=== PATIENT | male | born 1980 ===

== ENCOUNTER 2018-04-19 05:40 | Observation (INO) | payer OTHER ==
[2018-04-19] VITALS (17 sets, daily range): BP systolic 108–134; BP diastolic 55–83
[~2018-04-19] VITALS: Ht 170.2 cm; Wt 81.6 kg
[~2018-04-19 05:40] MED LIST: NKM
[2018-04-19] MEDS ORDERED: D5 1/2NS 1000ml IV ONE (05:41)
[2018-04-19] MEDS ORDERED: LR 1000ml 1,000 ML IVLG SCH (06:10)
--- NOTE | 2018-04-19 06:14 | Anethesia Preoperative Eval ---
Anesthesia Pre-op PMH/ROS General Date of Evaluation: Apr 19, 2018 Time of Evaluation: 07:28 Anesthesiologist: Angy ASA Score: ASA 2 Mallampati Score Class I : Soft palate, uvula, fauces, pillars visible Class II: Soft palate, uvula, fauces visible Class III: Soft palate, base of uvula visible Class IV: Only hard plate visible Mallampati Classification: Class II Surgeon: Mallory Diagnosis: Neck Pain Surgical Procedure: ACDF C3-4 Anesthesia History: none Family History: no anesthesia problems Allergies: Coded Allergies: No Known Allergies (Unverified , 04/18/18) Medications: see eMAR Patient NPO?: Yes Past Medical History Gastrointestinal/Genitourinary: Reports: GERD Other: obesity - BMI 30 Anesthesia Pre-op Phys. Exam Physician Exam Last Vital Signs Date Time Temp Pulse Resp B/P (MAP) Pulse Ox O2 Delivery O2 Flow Rate FiO2 04/19/18 06:12 97.3 72 20 109/72 (84) 100 04/19/18 06:07 Room Air Constitutional: NAD Neurologic: CN 2-12 intact Cardiovascular: RRR Respiratory: CTA Gastrointestinal: S/NT/ND Airway Exam Mallampati Score: Class II MO: limited ROM: limited Teeth: intact Anesthesia Pre-op A/P Risk Assessment & Plan Assessment: ASA 2 Plan: GA Status Change Before Surgery: No Pre-Antibiotics Dru Grams Ancef IV Given Within 1 Hr of Incision: Yes Time Given: 07:41 Berry Travis MD Apr 19, 2018 06:14
[2018-04-19] MEDS ORDERED: DiphenhydrAMINE 50mg/ml Inj IVP PRN (06:15)
[2018-04-19] MEDS ORDERED: Atropine Sulfate 0.4mg/ml inj IVP PRN (06:15)
[2018-04-19] MEDS ORDERED: LORazepam Inj 2mg/ml 1ml IV PRN (06:15)
[2018-04-19] MEDS ORDERED: fentaNYL 100 mcg/2 mL IV PRN (06:15)
[2018-04-19] MEDS ORDERED: oxyCODONE HCL/Acetaminophen 5/325mg ORAL PRN (06:15)
[2018-04-19] MEDS ORDERED: Metoclopramide 10mg/2ml Inj IVP PRN (06:15)
[2018-04-19] MEDS ORDERED: Midazolam 2mg/2ml Inj IVP PRN (06:15)
[2018-04-19] MEDS ORDERED: Norco 5mg/325mg tab ORAL PRN ×2 (06:15→10:30)
[2018-04-19] MEDS ORDERED: Ketorolac 30mg Inj IV PRN ×2 (06:15)
[2018-04-19] MEDS ORDERED: HYDROcodone/Acetamin 7.5/325 tab ORAL PRN ×3 (06:15→10:30)
[2018-04-19] MEDS ORDERED: Meperidine 50mg/ml Inj(FOR RIGORS ONLY) IVP PRN (06:15)
[2018-04-19] MEDS ORDERED: Zemuron 50mg/5ml Inj IV ONE (06:18)
[2018-04-19] MEDS ORDERED: Acetaminophen (Non formulary) 100 ML IV ONE (06:30)
[2018-04-19] MEDS ORDERED: Sodium Chloride 10ml vial INJ ONE (06:55)
[2018-04-19] MEDS ORDERED: Lidocaine 1% MPF 10mg/ml 5ml ONE (06:55)
[2018-04-19] MEDS ORDERED: Dexamethasone 4mg/ml vial ONE (06:55)
[2018-04-19] MEDS ORDERED: Vancomycin 1gm inj IVPB ONE (06:58)
[2018-04-19] MEDS ORDERED: Bupivacaine w/Epi 0.5% 30ml Vial INJ ONE (06:59)
[2018-04-19] MEDS ORDERED: Thrombin 5000 units TOPIC ONE ×2 (06:59→07:00)
[2018-04-19] MEDS ORDERED: Bacitracin 50000 Units Vial ONE (06:59)
[2018-04-19] MEDS ORDERED: Gelfoam Size TOPIC ONE (06:59)
[2018-04-19] MEDS ORDERED: ceFAZolin sod 2 GM in D5W 110 ML IVPB ONE (07:00)
[2018-04-19] MEDS ORDERED: Lidocaine 1% Plain 30 ml INJ ONE ×2 (07:01→09:15)
[2018-04-19] MEDS ORDERED: fentaNYL 100 mcg/2 mL IV ONE ×3 (07:09→10:11)
--- NOTE | 2018-04-19 07:27 | Pre-Procedure Note/Attestation ---
Pre-Procedure Note/Attestation Complete Prior to Procedure Procedure Narrative: acdf C3-4 with right iliac crest bone marrow aspiration Attestation I attest that I discussed the nature of the procedure; its benefits; risks and complications; and alternatives (and the risks and benefits of such alternatives ), prior to the procedure, with the patient (or the patient's legal entry level marketing representative). I attest that, if there was a reasonable possibility of needing a blood transfusion, the patient (or the patient's legal entry level marketing representative) was given the [facility] standardized written summary, pursuant to the Sam Juntura Blood Safety Act ([place] Health and Safety Code # 1645, as amended). I attest that I re-evaluated the patient just prior to the surgery and that there has been no change in the patient's H&P, except as documented below: Gennaro Tejada MD Apr 19, 2018 07:27
[2018-04-19] MEDS ORDERED: Heparin 1000 units/ml 1ml Vial ONE (07:28)
[2018-04-19] MEDS ORDERED: HYDROmorphone 1mg/ml Carpuject SUBQ PRN (10:30)
[2018-04-19] MEDS ORDERED: Naloxone 0.4mg/ml Inj IVP PRN (10:30)
--- NOTE | 2018-04-19 10:30 | Brief Operative Note ---
Immediate Post Operative Note Operative Note Pre-op Diagnosis: cervical myeloradiculopathy Procedure: acdf c3-4 and BMAC Post-op Diagnosis: mali Post-op Diagnosis: same as pre-op Findings: consistent w/pre-op dx studies Surgeon: David Milk Drier: Demian Anesthesiologist: Grazyna Anesthesia: general Specimen: yes Complications: none Condition: stable Fluids: 900cc Estimated Blood Loss: minimal - 15cc Drains: none Implant(s) used?: Yes Gennaro Tejada MD Apr 19, 2018 10:30
--- NOTE | 2018-04-19 10:39 | Immediate Post-Op Evaluation ---
Immediate Post-Op Evalulation Immediate Post-Op Evalulation Procedure: ACDF C3-4 Date of Evaluation: Apr 19, 2018 Time of Evaluation: 10:47 IV Fluids: 900 LR Blood Products: 0 Estimated Blood Loss: 15 Urinary Output: 0 Blood Pressure Systolic: 126 Blood Pressure Diastolic: 76 Pulse Rate: 68 Respiratory Rate: 16 O2 Sat by Pulse Oximetry: 100 Temperature (Fahrenheit): 97.3 Pain Score (1-10): 2 Nausea: No Vomiting: No Complications 0 Patient Status: awake, reacts, patent, none Hydration Status: adequate Dru Grams Ancef IV Given Within 1 Hr of Incision: Yes Time Given: 07:41 Berry Travis MD Apr 19, 2018 10:39
[2018-04-19] MEDS: Hydromorphone 0.5mg/0.5ml inj IVP PRN ×2 (11:05→11:25)
--- NOTE | 2018-04-19 12:30 | Diagnostic Imaging Report ---
Indication: Neck Pain Findings: 3 fluoroscopic views of the cervical spine were obtained. Localization images followed by anterior cervical fusion at C3-C4 noted with anterior compression plate and the prosthetic disc. IMPRESSION: Intraoperative imaging
[2018-04-19] MEDS: D5 1/2NS 1,000 ML IV SCH ×2 (14:22→21:01)
[2018-04-19] MEDS: ceFAZolin 1gm/50ml Premix 50 ML IV SCH ×2 (16:12→22:58)
[2018-04-19] MEDS: Docusate 100mg cap ORAL SCH (17:39)
--- NOTE | 2018-04-19 19:21 | Cardiology Progress Note ---
Assessment/Plan Assessment/Plan [id number] early ambulation avoidance of tobacco pain management Chloraseptic spray prn home in am if ok Objective Last 24 Hour Vital Signs Date Time Temp Pulse Resp B/P (MAP) Pulse Ox O2 Delivery O2 Flow Rate FiO2 04/19/18 16:00 97.3 64 16 130/75 (93) 99 04/19/18 13:45 97.6 65 20 121/66 (84) 99 04/19/18 13:15 97.6 60 20 124/69 (87) 98 04/19/18 12:45 97.4 73 22 123/73 (90) 99 04/19/18 12:09 97.0 62 22 124/75 100 Nasal Cannula 3 04/19/18 11:53 58 17 108/55 100 Nasal Cannula 3 04/19/18 11:48 97.9 04/19/18 11:45 63 17 124/74 100 Nasal Cannula 3 04/19/18 11:35 60 15 127/72 100 Nasal Cannula 3 04/19/18 11:25 62 13 131/75 100 Nasal Cannula 3 04/19/18 11:20 61 15 131/70 99 Nasal Cannula 3 04/19/18 11:05 68 23 134/83 99 Nasal Cannula 3 04/19/18 10:55 64 23 132/81 100 Nasal Cannula 3 04/19/18 10:45 71 15 134/82 100 Simple Mask 6 04/19/18 10:40 73 16 131/83 100 Simple Mask 6 04/19/18 10:39 68 16 100 04/19/18 10:36 97.3 68 16 126/76 100 Simple Mask 6 04/19/18 06:12 97.3 72 20 109/72 (84) 100 04/19/18 06:07 Room Air Homero Llanes MD Apr 19, 2018 19:21
[2018-04-19] MEDS: Chloraseptic Spray 20mL Bottle ORAL PRN (21:02)
--- NOTE | 2018-04-19 22:00 | Operative Note - Dictated ---
DATE OF OPERATION: 04/19/2018 PREOPERATIVE DIAGNOSIS: C3-C4 disk protrusion with spinal cord compression and upper extremity mild radiculopathy. POSTOPERATIVE DIAGNOSIS: C3-C4 disk protrusion with spinal cord compression and upper extremity myeloradiculopathy. PROCEDURES PERFORMED: 1. Anterior cervical interbody fusion and decompression with radical diskectomy at C3-C4. 2. Anterior cervical instrumentation at C3-C4. 3. Insertion of interbody biomechanical device at C3-C4. 4. Placement of allograft and local autograft at C3-C4. 5. Implantation of bone marrow aspirate concentrate at C3-C4 and acquisition of bone marrow aspiration from the right iliac crest. SURGEON: Gennaro Tejada M.D. STUDENT ASSISTANT: Manasa Arciniega M.D. ANESTHESIA: General endotracheal anesthesia. SPECIMEN: C3-C4 disk. ANESTHESIOLOGIST: Berry Travis M.D. ESTIMATED BLOOD LOSS: 15 mL. IV ANTIBIOTICS: 2 g of Ancef. FLUIDS: 900 mL of crystalloid. COMPLICATIONS: None. INTRAOPERATIVE FINDINGS: A large disk herniation at C3-C4 with spinal cord compression and bilateral neural foraminal stenosis for the exiting C4 nerve root. BACKGROUND INDICATIONS: This is a pleasant gentleman, who failed nonoperative treatment and option for above treatment was given. Risks, alternatives, and benefits were discussed with the patient at length. Option for above treatment was given and the patient wished to proceed. Risks include, but are not limited to anesthesia; complications including ; and medical complications including liver, kidney, cardiopulmonary deficits, infection, bleeding, dysphonia, dysphagia, hematoma of the neck, nerve root injury, paralysis, spinal cord injury, CSF leak, dural tear, fracture of the hardware, loosening of the hardware, need for revision, decompression and fusion, swallowing difficulties, esophageal injury, tracheal injury, and recurrent laryngeal nerve injury as well as other complications including compartment syndrome. The patient understood and wished to proceed. All the patient's questions were answered. Written and verbal consent was given. No guarantees were given. DESCRIPTION OF OPERATION: The patient was brought into the operating room supine on a stretcher. Appropriate IV lines were placed by the anesthesiologist and 2 g of Ancef was administered before the skin incision. A surgical time-out was called. The consent form was reviewed and operating room staff were identified. The patient was induced and intubated with straight in-line intubation. The patient was positioned onto the operating room table. The neck was placed into neutral anatomical alignment. The arms were tucked by the side. All bony prominences were well padded as well as the four extremities. SSEP and neuromonitoring leads were placed and baseline recordings were evaluated. Preoperative fluoroscopy revealed the planned incision to be on the right side over the C3-C4 interbody space. Fluoroscopy showed the neck to be in adequate alignment. The neck was prepped and draped in usual sterile fashion. An incision was carried out on the right side of the neck in the crease of the neck. Hemostasis was achieved with bipolar cautery. The platysma was incised in-line with the skin incision. Blunt dissection was carried out in the interval between the strap muscles and the sternocleidomastoid. Superficial cervical fascia was dissected caudally as well cephalad. Carotid pulse was palpated and was found to be well lateral to the field of dissection. Deep cervical fascia was encountered. Once the deep cervical fascia was found, blunt dissection was carried out with Kittners as well as finger dissection to find the prevertebral space. The longus colli was found on both sides of the spine. The longus colli was subperiosteally dissected off of the spine and at this point, the retractors were set into place. Spinal needle was used to identify the C3-C4 interspace. Lateral fluoroscopy revealed the spinal needle to be at the C3-C4 interspace. Retractors were set into place. This was done with the intraoperatively sterilely draped microscope from the skin incision to the skin closure. At this point, attention was diverted to the diskectomy with a straight and curved curettes and #2 and #3 Kerrison punches. The radical diskectomy was accomplished. Also, a high-speed drill was used to drill to the level of the posterior longitudinal ligament. The posterior osteophytes at C3 and C4 were removed to the level of the posterior longitudinal ligament. Disk material was removed. Bone from the vertebral bodies of C3 and C4 were both harvested for later implantation into the disk space for arthrodesis. Before this was done, please note that the right iliac crest was also prepped and draped in the usual sterile fashion and before the skin incision in the neck, a SonoPlotshidi needle was placed approximately 2 to 3 fingerbreadths posterior to the anterior-superior iliac spine and 30 mL of bone marrow aspirate was removed in three different locations from the iliac crest and was passed off for concentration for stem cells now. Once this was accomplished with stem cells, we will keep it sterilely for later implantation into the interbody space. At this point, attention was diverted to removal of the posterior longitudinal ligament. This was done with #1 and #2 Microsect curette. There was significant compression on the left spinal cord as well as central canal as well as lateral recess stenosis as well as foraminal stenosis for the exiting C4 nerve roots bilaterally. Once the posterior longitudinal ligament was removed, complete decompression of the exiting nerve roots bilaterally was accomplished by doing an anterior foraminotomy. Valsalva was done. There was no CSF leak and attention was diverted to interbody arthrodesis. Different trials from the spinal element system was used and the following PEEK interbody device from the spinal element system was chosen. A 16 x 13 x 6 mm PEEK interbody device with 7 degrees of lordosis was chosen, was packed with allograft, autograft, bone marrow aspirate concentrate, and tamped into place at C3-C4 with excellent recreation of disk height and lordosis at C3-C4 and this was verified with biplanar fluoroscopy. Now, a Blanding plate measuring 12 mm was bent into a lordotic fashion, was placed at the C3 and C4 vertebral bodies, and was fixed to the anterior surface of the C3 and C4 vertebral bodies with 14 mm self-drilling screws at C3 and 12 mm self-drilling screws at C4. Each screw had excellent purchase and sat below the locking mechanism of the Blanding plate appropriately. Final AP and lateral fluoroscopy revealed all instrumentation to be in excellent position. Hemostasis was achieved with Gelfoam, thrombin, bipolar cautery, and now attention was diverted for hemostasis. Once hemostasis was achieved, the wound was copiously irrigated with triple antibiotic solution. This was done multiple times during the case including in the disk space before the implants were placed. Now, attention was diverted to closure. A 1 g of vancomycin powder was placed in the wound and the platysma was closed with 3-0 Vicryl suture and the subcuticular layer was closed with 3-0 Monocryl sutures and Dermabond. Sterile dressing tape was placed. All sponge, needle, and instrument counts were correct. There were no complications during the case. The patient was admitted to the hospital for monitoring and will be followed up accordingly. Gennaro Tejada M.D. DR: DIONNE JOB#: [id number] CC: ANDERS
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
[2018-04-20] MEDS: Chloraseptic Spray 20mL Bottle ORAL PRN ×2 (03:00→12:17)
[2018-04-20 04:00] VITALS: BP 112/68
[2018-04-20] MEDS: HYDROmorphone 1mg/ml Carpuject IVP PRN ×3 (05:04→11:25)
[2018-04-20] MEDS: D5 1/2NS 1,000 ML IV SCH (06:58)
[2018-04-20 08:00] VITALS: BP 123/71
[2018-04-20] MEDS: ceFAZolin 1gm/50ml Premix 50 ML IV SCH (08:45)
[2018-04-20] MEDS: Docusate 100mg cap ORAL SCH (08:52)
--- NOTE | 2018-04-20 10:13 | 48 Hour Post Anesthesia Eval ---
Post Anesthesia Evaluation Procedure: ACDF C3-4 Date of Evaluation: Apr 20, 2018 Time of Evaluation: 10:12 Blood Pressure Systolic: 116 0: 72 Pulse Rate: 64 Respiratory Rate: 21 Temperature (Fahrenheit): 97.8 O2 Sat by Pulse Oximetry: 98 Airway: patent Nausea: No Vomiting: No Pain Intensity: 4 Hydration Status: adequate Cardiopulmonary Status: stable Mental Status/LOC: patient returned to baseline Follow-up Care/Observations: n/a Post-Anesthesia Complications: none Follow-up care needed: N/A Julio Reddy MD Apr 20, 2018 10:13
[2018-04-20] MEDS ORDERED: Tubing IV Secondary IV ONE (11:59)
[2018-04-20] MEDS ORDERED: D5NS 1000ml IV ONE (11:59)
[2018-04-20 12:00] VITALS: BP 113/69
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
== END 2018-04-20 12:00 | disposition home or self-care (01) ==
LOC: SDSOVERFLO 05:40 → EDBD 05:40 → INTOOBSV 05:40 → 3E 12:40
DX: M50.11 Cervical disc disorder with radiculopathy, high cervical region (principal); F17.210 Nicotine dependence, cigarettes, uncomplicated; K21.9 Gastro-esophageal reflux disease without esophagitis; E66.9 Obesity, unspecified; Z68.30 Body mass index [BMI] 30.0-30.9, adult; M79.2 Neuralgia and neuritis, unspecified; F11.21 Opioid dependence, in remission
CPT/HCPCS: 20930; 20939; 22551; 22853; 36415; 72040; 76001; 86850; 86900; 86901; 87081; 97110; 97116; 97161; 97165; 97530; 97535; C1713; G0378; J0690; J1100; J1170; J1200; J1644; J2001; J2175; J2250; J2405; J3010; J3370; 94003; 94150